=== PATIENT | female | born 1955 | race Caucasian/White ===

== ENCOUNTER → 2019-10-31 | Outpatient (CLI) | payer OTHER | LOC: RAD 10:57 | DX: Z12.31 Encounter for screening mammogram for malignant neoplasm of breast (principal) ==

== ENCOUNTER → 2021-02-17 | Outpatient (CLI) | payer OTHER, BC | LOC: BC 10:00 | DX: Z12.31 Encounter for screening mammogram for malignant neoplasm of breast (principal) ==